=== PATIENT | male | born 1945 | race Caucasian/White ===

== ENCOUNTER 2016-06-09 11:20 | Day surgery (SDC) | payer BC ==
--- NOTE | ~2016-06-09 | EGD ---
EGD REPORT [facility] [address] [address] NAME: SONU JACOBSON : [birth year] STATUS : REG [facility]#: [id number] AGE: 70 ADM/REG DATE : 06/09/16 MR#: [id number] REPORT SERV DATE: 06/09/16 DICTATED BY: DALY PARK DATE: 06/09/16 REPORT STATUS : Draft [facility]ED BY: [facility] DATE: 06/09/16 [facility] Patient Name: Sonu Jacobson Date of : 1945 Attending MD: DALY PARK MD Procedure Date No Time: 06/09/2016 Procedure: Upper GI endoscopy Indications: Epigastric abdominal pain Referring MD: AP WHITE MD Medicines: as per anesthesia Complications: No immediate complications. Procedure: Pre-Anesthesia Assessment: - ASA Grade Assessment: III - A patient with severe systemic disease. After obtaining informed consent, the endoscope was passed under direct vision. Throughout the procedure, the patient's blood pressure, pulse, and oxygen saturations were monitored continuously. The GIF [id number] was introduced through the mouth, and advanced to the third part of duodenum. The upper GI endoscopy was accomplished without difficulty. The patient tolerated the procedure. Findings: Non-severe esophagitis was found in the lower third of the esophagus. Biopsies were taken with a cold forceps for histology. A non-obstructing Schatzki ring (acquired) was found in the lower third of the esophagus. A small hiatus hernia was present. The examined duodenum was normal. Impression: - Non-severe reflux esophagitis. Biopsied. - Non-obstructing Schatzki ring. - Hiatus hernia. - Normal examined duodenum. Recommendation: - Await pathology results. - Follow an antireflux regimen. - Continue present medications. Procedure Code(s): --- Professional --- 54875, Esophagogastroduodenoscopy, flexible, transoral; with biopsy, single or multiple Diagnosis Code(s): --- Professional --- EGD REPORT [address] [place]. [address] NAME: SONU JACOBSON : [birth year] STATUS : REG [facility]#: [id number] AGE: 70 ADM/REG DATE : 06/09/16 MR#: [id number] REPORT SERV DATE: 06/09/16 DICTATED BY: DALY PARK. DATE: 06/09/16 REPORT STATUS : Draft TRANSCRIBED BY: [employer] DATE: 06/09/16 K21.0, Gastro-esophageal reflux disease with esophagitis K22.2, Esophageal obstruction K44.9, Diaphragmatic hernia without obstruction or gangrene R10.13, Epigastric pain CPT copyright 2013 [employer]. All rights reserved. The codes documented in this report are preliminary and upon dry chain worker review may be revised to meet current compliance requirements. DALY PARK MD 06/09/2016 1:15 PM This report has been signed electronically. Number of Addenda: 0 Note Initiated On: 06/09/2016 12:47 PM Scope Withdrawal Time 0 hours 0 minutes [address] [place], [place] [address] [address]
[~2016-06-09 11:20] MED LIST: ADDERALL XR15 MG PO; ADDERALL15 MG PO; ASAB PO; CRESTOR5 MG PO; DENIES MEDS; EFFIENT10 PO; FISH-EPA1000 MG PO; LEVOTHYROXIN75 MCG PO; MAGOX4 PO; MULTI-VIT HP PO; PRILO PO; PROBIOTIC PO; PROTONIX20 MG PO; VITA10 PO; VITAMIN D31000 UNIT PO; VITC500 PO; VITE PO
[2016-08-10] MEDS ORDERED: TUMSROLL PO (14:54)
[2016-08-10] MEDS ORDERED: VITAMIN B-121000 MC1 SL (14:55)
[2016-08-10] MEDS ORDERED: VITAMIN D31000 UNIT PO (14:55)
== END 2016-06-09 23:59 | disposition home or self-care (01) ==
LOC: DMU 11:20
PROVIDERS: Internal Medicine Gastroenterology
PROC: 0DB38ZX Excision of Lower Esophagus, Via Natural or Artificial Opening Endoscopic, Diagnostic (ICD-10-PCS; principal; 2016-06-09 12:30)
DX: K22.2 Esophageal obstruction (principal); K44.9 Diaphragmatic hernia without obstruction or gangrene; I25.10 Atherosclerotic heart disease of native coronary artery without angina pectoris; E03.9 Hypothyroidism, unspecified; G81.91 Hemiplegia, unspecified affecting right dominant side; Z79.82 Long term (current) use of aspirin; Z86.73 Personal history of transient ischemic attack (TIA), and cerebral infarction without residual deficits; Z79.899 Other long term (current) drug therapy; Z90.49 Acquired absence of other specified parts of digestive tract; Z98.890 Other specified postprocedural states
CPT/HCPCS: 88305